=== PATIENT | female | born 1955 | race Caucasian/White ===

== ENCOUNTER → 2016-10-09 | Outpatient (CLI) | payer MEDICARE, OTHER ==
[~2016-10-09] MED LIST: BARIUM SUSPENSION 105% (LIQUID POLIBAR PLUS) 240 ML/DOSE PO ONE; BARIUM SUSPENSION 60% (LIQUID EZ PAQUE) 240 ML DOSE PO ONE
--- NOTE | 2016-10-09 09:36 | Diagnostic Imaging Report ---
EXAMINATION: Upper GI study, double contrast. Energy Assistant image of the abdomen was performed. After the oral administration of gas forming granules, the patient drank thick and thin barium with visualization under fluoroscopy, with spot images taken over the esophagus, stomach and duodenum and followed by overhead images in the chest and abdomen. INDICATION: Reflux. FLUOROSCOPY TIME: One minutes and 38 seconds. FINDINGS: Energy Assistant images of the abdomen demonstrate surgical clips in the upright abdomen and moderate colonic amount of fecal material. The esophagus demonstrates normal caliber with no strictures. The mucosal pattern demonstrates no filling defects, diverticulum or ulceration. There is normal relaxation of the distal sphincter. There is a small to moderate sized hiatal hernia. The hernia appears larger on supine and prone position. The stomach demonstrates normal distensibility with normal appearance of the mucosal folds. There are no ulcers or evidence of mass. The duodenal bulb and sweep appear normal. IMPRESSION: Hiatal hernia. Dictated by: Dictated on workstation # [id number]
== END ==
LOC: RAD 07:28
PROVIDERS: ATTEND Surgery Pediatric Surgery
DX: K44.9 Diaphragmatic hernia without obstruction or gangrene (principal)
CPT/HCPCS: 74241

== ENCOUNTER 2016-11-22 09:43 | Outpatient (CLI) | payer MEDICARE, OTHER ==
[~2016-11-22] VITALS: Ht 154.9 cm; Wt 102.5 kg
[2016-11-22 09:52] VITALS: BP 154/69
[2016-11-22] MEDS ORDERED: MOME13HF IH (10:06)
[2016-11-22] MEDS ORDERED: RT-ALBUINH IH (10:06)
[2016-11-22] MEDS ORDERED: METO100T2 PO (10:06)
[2016-11-22] MEDS ORDERED: CYCL10TA9 PO (10:06)
[2016-11-22] MEDS ORDERED: HYDR25TA4 PO (10:06)
[2016-11-22] MEDS ORDERED: LEVO150T6 PO (10:06)
[2016-11-22 10:34] LABS: BASOPHILS % (AUTO) 0 % (0-10); EOSINOPHILS # (AUTO) 0.1 10^3/uL (0.0-0.3); EOSINOPHILS % (AUTO) 2 % (0-10); LYMPHOCYTES # (AUTO) 1.8 X 10^3 (1.0-4.0); LYMPHOCYTES % (AUTO) 21 % (12-44); MEAN CORPUSCULAR HEMOGLOBIN 32 PG (25-34); MEAN CORPUSCULAR HGB CONC 33 G/DL (32-36); MEAN CORPUSCULAR VOLUME 96 FL (80-99); MEAN PLATELET VOLUME 8.9 FL (7.4-10.4); MONOCYTES # (AUTO) 0.5 X 10^3 (0.0-1.0); MONOCYTES % (AUTO) 6 % (0-12); NEUTROPHILS # (AUTO) 5.9 X 10^3 (1.8-7.8); NEUTROPHILS % (AUTO) 71 % (42-75); PLATELET COUNT 333 10^3/uL (130-400); RED BLOOD COUNT 4.17 10^6/uL (4.35-5.85); WHITE BLOOD COUNT 8.3 10^3/uL (4.3-11.0)
[2016-11-22 10:52] LABS: ANION GAP 9 MMOL/L (5-14); BLOOD UREA NITROGEN 6 MG/DL (7-18); BUN/CREATININE RATIO 8 (0-20); CALCIUM 9.2 MG/DL (8.5-10.1); CARBON DIOXIDE 23 MMOL/L (21-32); CHLORIDE 105 MMOL/L (98-107); CREATININE SERUM 0.73 MG/DL (0.60-1.30); GFR ESTIMATED > 60; GLUCOSE 115 MG/DL (70-105); HEMOLYSIS 4 (0-29); ICTERUS 0.4 (0-1.9); LIPEMIA 1 (0-49); POTASSIUM 4.1 MMOL/L (3.6-5.0); SODIUM 137 MMOL/L (135-145)
== END 2016-11-22 10:25 | disposition home or self-care (01) ==
LOC: PREOP 09:43
PROVIDERS: ATTEND Surgery Pediatric Surgery
DX: Z01.812 Encounter for preprocedural laboratory examination (principal); Z11.2 Encounter for screening for other bacterial diseases; E66.01 Morbid (severe) obesity due to excess calories
CPT/HCPCS: 36415; 80048; 85025; 87081

== ENCOUNTER 2016-11-29 06:00 | Inpatient (IN) | payer MEDICARE, OTHER ==
[~2016-11-29] VITALS: Ht 154.9 cm; Wt 102.5 kg
[~2016-11-29 06:00] MED LIST changes: -BARIUM SUSPENSION 105% (LIQUID POLIBAR PLUS) 240 ML/DOSE PO ONE; -BARIUM SUSPENSION 60% (LIQUID EZ PAQUE) 240 ML DOSE PO ONE; +CYCL10TA9 PO; +HYDR25TA4 PO; +LEVO150T6 PO; +METO100T2 PO; +MOME13HF IH; +RT-ALBUINH IH
[2016-11-29 07:00] VITALS: BP 138/82
[2016-11-29] MEDS ORDERED: BUP/EPI 0.5% 1:200,000 (SENSORCAINE) 30 ML VIAL ONE (07:04)
[2016-11-29] MEDS ORDERED: MIDAZOLAM 2 MG/2 ML (VERSED) VIAL ONE (07:10)
[2016-11-29] MEDS ORDERED: fentaNYL INJECTION 100 MCG/2 ML AMP ONE ×2 (07:10→09:03)
[2016-11-29] MEDS ORDERED: ceFAZolin 1 GM/NS 50 ML IVPB IV ONE ×2 (07:30)
[2016-11-29] MEDS ORDERED: CATHETER FLUSH 10 ML SYR IV PRN (07:30)
[2016-11-29] MEDS: LACTATED RINGERS 1,000 ML IV PRN ×2 (07:30→09:31)
--- NOTE | 2016-11-29 07:57 | Progress Note-Pre Operative ---
Pre-Operative Progress Note H&P Reviewed The H&P was reviewed, patient examined and no changes noted. Date Seen by Provider: Nov 29, 2016 Time Seen by Provider: 07:45 Date H&P Reviewed: Nov 29, 2016 Time H&P Reviewed: 07:50 Pre-Operative Diagnosis: Morbid obesity, HTN, COPD, asthma, DJD TEAGAN OSBORNE APRN Nov 29, 2016 7:57 am
[2016-11-29] MEDS ORDERED: proPOfol 200 MG/20 ML (DIPRIVAN) VIAL IV ONE ×2 (08:55→09:27)
[2016-11-29] MEDS ORDERED: LIDOCAINE PF 2% 5 ML (XYLOCAINE) VIAL ONE (08:55)
[2016-11-29] MEDS ORDERED: SEVOFLURANE (ULTANE) 15 ML INHAL SOLN ONE (08:55)
[2016-11-29] MEDS ORDERED: DEXAMETHASONE PF 10 MG/ML (DECADRON) VIAL ONE (08:55)
[2016-11-29] MEDS ORDERED: LACTATED RINGERS 1,000 ML IV ONE ×2 (08:55→09:47)
[2016-11-29] MEDS ORDERED: ONDANSETRON 4 MG/2 ML (SDV) Z0FRAN ONE (08:55)
[2016-11-29] MEDS ORDERED: ROCURONIUM 50 MG/5 ML (ZEMURON) VIAL IV ONE ×2 (09:26)
[2016-11-29] MEDS ORDERED: hydrALAZINE (APESOLINE) 20 MG/ML VIAL ONE (09:47)
--- NOTE | 2016-11-29 10:32 | Progress Note-Post Operative ---
Post-Operative Progess Note Surgeon (s)/[employer] Player (s) Surgeon RYLEE SCHAEFER MD [employer] Player: horacio herman SODA JERKER Pre-Operative Diagnosis Morbid obesity, HTN, COPD, asthma, DJD Post-Operative Diagnosis same, hiatal hernia Procedure & Operative Findings Date of Procedure 11/29/16 Procedure Performed/Findings laparoscopic gastric sleeve resection and hiatal hernia repair. Anesthesia Type GET Estimated Blood Loss Estimated blood loss (mL): minimal Specimens/Packing Specimens Removed stomach RYLEE SCHAEFER MD Nov 29, 2016 10:32 am
[2016-11-29] MEDS: RT-ALBUTEROL SULF 2.5 MG/3 ML PRE-MIX VIAL INH SCH ×4 (10:45→21:28)
[2016-11-29] MEDS ORDERED: diphenhydrAMINE 50 MG/ML INJ (BENADRYL) IVP PRN (10:45)
[2016-11-29] MEDS ORDERED: morphine INJ 10 MG/ML 1ML (SYR OR VIAL) IVP PRN (11:00)
[2016-11-29] MEDS ORDERED: GLYCOPYRROLATE 0.2 MG/ML (ROBINUL) 2 ML VIAL ONE (11:08)
[2016-11-29] MEDS ORDERED: NEOSTIGMINE (BLOXIVERZ ) 1 MG/1ML 10 ML VIAL ONE (11:08)
[2016-11-29 12:30] VITALS: BP 130/67
[2016-11-29] MEDS: 1/2 NS W/KCL 20 MEQ/L 1,000 ML IV SCH ×3 (13:24→20:53)
[2016-11-29] MEDS ORDERED: MELA1TAB15 PO (13:25)
[2016-11-29] MEDS: fentaNYL PCA 300 MCG/30 ML VIAL IV PRN (13:27)
[2016-11-29] MEDS: ceFAZolin 2 GM/50 ML NS 50 ML IV SCH ×2 (14:59→17:29)
[2016-11-29] MEDS: METOCLOPRAMIDE INJ 10 MG/2 ML (REGLAN) IVP SCH ×2 (15:00→20:53)
[2016-11-29] MEDS: ONDANSETRON 4 MG/2 ML (SDV) Z0FRAN IVP SCH ×2 (15:00→20:54)
[2016-11-29] MEDS: metroNIDAZOLE 500MG/100ML IVPB 100 ML IV SCH (15:44)
[2016-11-29 16:20] VITALS: BP 155/80
[2016-11-29 17:20] VITALS: BP 139/83
[2016-11-29] MEDS: oxyCODONE 20 MG/1 ML ORAL CONC (RoxiCODONE) CHARGE PER 1 ML PO PRN (19:25)
--- NOTE | 2016-11-29 20:02 | OPERATIVE REPORT ---
DATE OF SERVICE: 11/29/2016 PRIMARY CARE PHYSICIAN: Dr. Vasquez. PREOPERATIVE DIAGNOSES: 1. Morbid obesity. 2. Hypertension. 3. Hiatal hernia. POSTOPERATIVE DIAGNOSES: 1. Morbid obesity. 2. Hypertension. 3. Hiatal hernia. PROCEDURE: Laparoscopic gastric sleeve resection and hiatal hernia repair. SURGEON: Dr. Schaefer. CV TECH: Cain Sargent APRN. ANESTHESIA: General endotracheal. ESTIMATED BLOOD LOSS: Minimal. FINDINGS: Significant sized hiatal hernia approximately 3 cm in size. A mild hepatomegaly with liver steatosis. DISPOSITION: The patient tolerated the procedure well. INDICATIONS: This patient is a 61-year-old female in our surgical weight loss program for the laparoscopic gastric sleeve resection and meets the medical criteria for bariatric surgery. She began to gain the majority of her adult weight over the past 3 years. She has tried a number of diet and exercise attempts. She has tried diets including cabbage, soup, Atkins diet, fasting as well as the [place] diet and reports that at some point she has had some success; however, would regain the weight back. She has also tried a number of exercise regimens including treadmill, walking; however, would regain the weight back. She has tried medications including Garcinia Cambogia which did not work. Her medical comorbidities related to her obesity include hypertension, asthma, COPD, degenerative joint disease as well as gastroesophageal reflux disease and hiatal hernia. DESCRIPTION OF PROCEDURE: The patient was brought to the operating room, laid supine on the table. After adequate IV pain and sedating medications and general endotracheal intubation, the abdomen was prepped and draped in standard surgical fashion. A 0.5% Marcaine with epinephrine was then used to anesthetize the overlying skin in the left upper abdominal quadrant. A small transverse skin incision made using a 15 blade. A 0-silk suture was applied to the medial aspect of the incision for retraction and a Veress needle inserted with a low opening pressure of 0 mmHg. The Veress needle removed and a 5 mm Xcel trocar placed followed by a 5 mm 45-degree angle laparoscope visualizing the peritoneal cavity. A four-quadrant abdominal exploration was performed. There was a mild hepatomegaly with mild liver steatosis. There was a surgically absent gallbladder. Upon further exploration, the hiatal hernia detected on upper GI contrast study was significant in size and approximately 3 cm in size. Under direct visualization, we then proceeded to place a midabdominal left to midline 10 mm port after the skin and peritoneum were anesthetized using 0.5% Marcaine and a transverse skin incision made using a 15 blade. In a similar manner, a midabdominal right of midline 15 mm port was placed followed by a 5 mm right upper abdominal quadrant port. An area in the epigastric region was then anesthetized and the skin incision made using an #11 blade. A tract was then created through the abdominal layers using a trocar to a 5 mm port. Through this opening, a medium-sized Marylu liver retractor was placed and the left lobe of the liver retracted anteriorly and superiorly. The patient was then placed in steep reverse Trendelenburg position. We measured 6 cm from the pylorus along the greater curvature and marked this with a marking pen. We then proceeded with opening at the gastrocolic ligament next to the stomach, entering to the lesser sac using Sonicision. We then proceeded with inferior dissection until we were approximately 2 cm below our marking using Sonicision with visualization of good hemostasis. We then proceeded cephalad along the greater curvature, taking down all the short gastric vessels. The entire angle of His connective tissue fibers were then dissected out as well with visualization of good hemostasis. We then proceeded with repair of the hiatal hernia. The phrenoesophageal ligament was opened using Sonicision. The defect was then approximated anteriorly using interrupted 2-0 Surgidac interrupted sutures closing the defect and pulling down the esophagus and creating an opening the diameter of the esophagus with visualization of good hemostasis. The GastriSail was then placed under direct visualization and used as a bougie. We then proceeded with a gastric sleeve resection along approximately 2 cm below our marking first using a JOSE polyglycolic acid black load. We then proceeded with a 60 mm black load followed by two 60 mm purple loads until we were approximately 2 cm from the gastroesophageal junction. Good hemostasis was observed. The staple line was then clipped at its corners using a 5 mm clip. The pylorus was then occluded and approximately 60 mL of air were infused and saline infused with no leaks identified. The saline was then suctioned out. Along the staple line, Tisseel fibrin glue was placed and the omentum placed over the staple line. The stomach remnant was removed through the 15 mm port site. The fascia and peritoneum to the 10 and 15 mm port sites were then closed under direct visualization using a Xavi-Priya device and 0 Vicryl suture. The abdomen was desufflated and the liver retractor removed as well as the remaining ports removed. All skin incisions were closed using 4-0 Monocryl running subcuticular sutures. Wounds were then cleaned and covered with Dermabond. The patient tolerated the procedure well. We will start IV normal pain medication including a WOODWIND INSTRUMENT REPAIRER pump. We will also proceed with DVT prophylaxis with early ambulation cath ICDs as well as Lovenox injections. Tomorrow morning, we will start the patient on clear liquid diet and once she is tolerating clears, has good pain control with oral pain medications and ambulating well, we will discharge her home. Specific instructions on diet including the next two weeks of clear liquid diet were explained to the patient as well. Job ID: [id number] DocumentID: [id number] Dictated Date: 11/29/2016 10:54:51 Travel Registered Nurse Nicu Date: 11/29/2016 13:32:22 Dictated By: RYLEE SCHAEFER MD
[2016-11-29 20:20] VITALS: BP 158/69
[2016-11-29] MEDS: ENOXAPARIN 30 MG/0.3 ML (LOVENOX) SYR SC SCH (20:54)
[2016-11-30] MEDS: metroNIDAZOLE 500MG/100ML IVPB 100 ML IV SCH ×2 (00:09→06:59)
[2016-11-30 00:33] VITALS: BP 146/76
[2016-11-30] MEDS: ceFAZolin 2 GM/50 ML NS 50 ML IV SCH ×2 (01:18→08:51)
[2016-11-30] MEDS: ONDANSETRON 4 MG/2 ML (SDV) Z0FRAN IVP SCH ×2 (02:08→06:58)
[2016-11-30] MEDS: METOCLOPRAMIDE INJ 10 MG/2 ML (REGLAN) IVP SCH ×2 (02:08→06:59)
[2016-11-30] MEDS: RT-ALBUTEROL SULF 2.5 MG/3 ML PRE-MIX VIAL INH SCH ×4 (02:09→14:56)
[2016-11-30] MEDS: oxyCODONE 20 MG/1 ML ORAL CONC (RoxiCODONE) CHARGE PER 1 ML PO PRN ×3 (03:53→13:56)
[2016-11-30] MEDS: 1/2 NS W/KCL 20 MEQ/L 1,000 ML IV SCH ×2 (03:55→15:47)
[2016-11-30 04:02] VITALS: BP 169/63
[2016-11-30] MEDS ORDERED: FUROSEMIDE 40 MG/4 ML INJ (LASIX) IVP ONE (04:15)
[2016-11-30 05:45] LABS: MEAN PLATELET VOLUME 9.1 FL (7.4-10.4); RED CELL DISTRIBUTION WIDTH 14.2 % (10.0-14.5); WHITE BLOOD COUNT 14.3 10^3/uL (4.3-11.0)
[2016-11-30 05:58] LABS: ANION GAP 12 MMOL/L (5-14); BLOOD UREA NITROGEN 9 MG/DL (7-18); BUN/CREATININE RATIO 11 (0-20); CALCIUM 8.8 MG/DL (8.5-10.1); CARBON DIOXIDE 21 MMOL/L (21-32); CHLORIDE 102 MMOL/L (98-107); CREATININE SERUM 0.82 MG/DL (0.60-1.30); GFR ESTIMATED > 60; GLUCOSE 139 MG/DL (70-105); HEMOLYSIS 6 (-100-29); ICTERUS 0.4 (-100-1.9); LIPEMIA 0 (-100-49); POTASSIUM 3.9 MMOL/L (3.6-5.0); SODIUM 135 MMOL/L (135-145)
[2016-11-30] MEDS: fentaNYL PCA 300 MCG/30 ML VIAL IV PRN (06:20)
--- NOTE | 2016-11-30 07:49 | Anesthesia-General Post-Op ---
General Patient Condition Mental Status/LOC: Same as Preop Cardiovascular: Satisfactory Nausea/Vomiting: Absent Respiratory: Satisfactory Pain: Controlled Complications: Absent Post Op Complications Complications None Follow Up Care/Instructions Patient Instructions None needed. Anesthesia/Patient Condition Patient Condition Patient is doing well, no complaints, stable vital signs, no apparent adverse anesthesia problems. No complications reported per nursing. D/C home per [facility] Criteria: No RODO CRISOSTOMO CRNA Nov 30, 2016 07:49
[2016-11-30 08:00] VITALS: BP 130/77
[2016-11-30] MEDS: ENOXAPARIN 30 MG/0.3 ML (LOVENOX) SYR SC SCH (08:51)
[2016-11-30] MEDS ORDERED: PANTOPRAZOLE 40 MG/10 ML (PROTONIX) VIAL IV SCH (09:00)
[2016-11-30] MEDS ORDERED: ONDANSETRON 4 MG/2 ML (SDV) Z0FRAN IVP PRN (10:45)
[2016-11-30] MEDS ORDERED: METOCLOPRAMIDE INJ 10 MG/2 ML (REGLAN) IVP PRN (10:45)
[2016-11-30 12:00] VITALS: BP 155/81
--- NOTE | 2016-11-30 14:21 | Progress Note (SOAP) ---
Subjective Date Seen by Provider: Nov 30, 2016 Time Seen by Provider: 14:00 Subjective/Events-last exam doing well. does have underlying respiratory issues including COPD. tolerating phase 1 clear liquids. pain controlled. Objective Exam Vital Signs Date Time Temp Pulse Resp B/P (MAP) Pulse Ox O2 Delivery O2 Flow Rate FiO2 11/30/16 12:00 99.4 85 20 155/81 95 Nasal Cannula 5.00 11/30/16 10:23 92 Nasal Cannula 5.00 11/30/16 09:00 Nasal Cannula 5.00 11/30/16 08:00 98.6 87 16 130/77 94 Nasal Cannula 5.00 11/30/16 06:51 20 11/30/16 06:48 92 Nasal Cannula 5.00 11/30/16 04:23 85 Nasal Cannula 5.00 11/30/16 04:02 99.8 104 20 169/63 90 Nasal Cannula 5.00 11/30/16 02:09 92 Nasal Cannula 5.00 11/30/16 00:33 99.1 92 20 146/76 94 Nasal Cannula 5.00 11/29/16 21:28 93 Nasal Cannula 5.00 11/29/16 21:00 Nasal Cannula 5.00 11/29/16 20:20 99.1 84 21 158/69 94 Nasal Cannula 5.00 11/29/16 19:14 95 Nasal Cannula 5.00 11/29/16 17:20 98.0 68 20 139/83 95 Nasal Cannula 5.00 11/29/16 16:20 98.1 66 20 155/80 94 Nasal Cannula 5.00 I & O 11/30/16 07:00 Intake Total 1200 ml Output Total 1835 ml Balance -635 ml Capillary Refill : General Appearance: No Apparent Distress HEENT: PERRL/EOMI Neck: Full Range of Motion Respiratory: Rhonci, Wheezing Cardiovascular: Regular Rate, Rhythm Gastrointestinal: normal bowel sounds, soft, other (wounds clean/dry) Extremity: Normal Capillary Refill Neurologic/Psychiatric: Alert, Oriented x3 Skin: Normal Color Lymphatic: No Adenopathy Results Lab Laboratory Tests 11/30/16 05:35: White Blood Count 14.3H, Red Blood Count 4.00L, Hemoglobin 12.7, Hematocrit 39, Mean Corpuscular Volume 98, Mean Corpuscular Hemoglobin 32, Mean Corpuscular Hemoglobin Concent 33, Red Cell Distribution Width 14.2, Platelet Count 282, Mean Platelet Volume 9.1, Sodium Level 135, Potassium Level 3.9, Chloride Level 102, Carbon Dioxide Level 21, Anion Gap 12, Blood Urea Nitrogen 9, Creatinine 0.82, Estimat Glomerular Filtration Rate > 60, BUN/Creatinine Ratio 11, Glucose Level 139H, Calcium Level 8.8 Assessment/Plan Assessment/Plan Assess & Plan/Chief Complaint s/p laparoscopic gastric sleeve resection and hiatal hernia repair. baseline repiratory status. on CPAP at night, may need home O2. continue ambulation and phase 1 clear liquid diet for 2 weeks. home soon. Clinical Quality Measures DVT/VTE Risk/Contraindication: Risk Factor Score Per Nursin RFS Level Per Nursing on Admit: 4+=Very High RYLEE SCHAEFER MD Nov 30, 2016 2:21 pm
[2016-11-30] MEDS ORDERED: NCT21TD TD (14:39)
--- NOTE | 2016-11-30 14:42 | Discharge Inst-Surgical ---
D/C Lap Instructions-OLIVE New, Converted, or Re-Newed RX: RX on Chart Follow Up Appt in 2 weeks Activity as tolerated No driving for 24 hours No driving while on pain medications Incentive Spirometry use every 2 hours while awake Phase 1 clear liquid diet for next 2 weeks. Symptoms to Report: Fever over 101 degree F, Nausea/Vomiting Infection Signs and Symptoms to report: Increased redness, Foul odor of wound, Increased drainage Bathing instructions: May shower Operative Area Clean/Dry; Keep incision clean/dry If any problems/questions: Contact your physician or go to Emergency Room RYLEE SCHAEFER MD Nov 30, 2016 2:41 pm
[2016-11-30] MEDS ORDERED: NICOTINE 21 MG (NICODERM) PATCH TD NR (14:45)
[2016-12-01] MEDS ORDERED: NICOTINE PATCH REMOVAL TP SCH (08:59)
--- NOTE | 2016-12-03 11:18 | Physician Query Clarification ---
PQ-Further Specificity Admission/Discharge Admission Date: Nov 29, 2016 at 06:00 Discharge Date: Nov 30, 2016 at 17:05 The medical record reflects the following clinical scenario: History/Risk Factors: Hiatal hernia, MOB Clinical Findings: 3 cm hiatal hernia defect Treatment: hiatal hernia repair Question: Can you further specify if the hiatal hernia is on the right, left or both sides of the diaphragm? Please document below. 1. Right side of diaphragm 2. Left side of diaphragm 3. On both the right side and left side of the diaphragm 4. Other, with explanation of the clinical findings. 5. Clinically undetermined, no explanation for the clinical findings. PHYSICIAN RESPONSE Can you specify per above: Other, explanation/clinical finding Explanation/Clinical Findings type one sliding hiatal hernia In responding to this query, please exercise your independent professional judgment. The purpose of this communication is to more accurately reflect the complexity of your patients condition. The fact that a question is asked does not imply that any particular answer is desired or expected. Thank you for your timely response to this clarification. Requestors name: [ ] Phone # [ ] THIS PHYSICIAN QUERY FORM IS A PERMANENT PART OF THE MEDICAL RECORD LILY ELLISON Dec 03, 2016 11:18 RYLEE SCHAEFER MD Dec 04, 2016 10:51
== END 2016-11-30 17:05 | disposition home or self-care (01) | DRG 621 ==
LOC: 4TH 06:00 → SURG 06:01 → 4TH 11:35
PROVIDERS: ADMIT Surgery; ATTEND Surgery
PROC: 0BQR4ZZ (ICD-10-PCS; 2016-11-29)
PROC: 0BQS4ZZ (ICD-10-PCS; 2016-11-29)
PROC: 0DB64Z3 Excision of Stomach, Percutaneous Endoscopic Approach, Vertical (ICD-10-PCS; principal; 2016-11-29 08:16)
DX: E66.01 Morbid (severe) obesity due to excess calories (principal); K44.9 Diaphragmatic hernia without obstruction or gangrene; K21.9 Gastro-esophageal reflux disease without esophagitis; K76.0 Fatty (change of) liver, not elsewhere classified; I10 Essential (primary) hypertension; J44.9 Chronic obstructive pulmonary disease, unspecified; J45.909 Unspecified asthma, uncomplicated; M19.91 Primary osteoarthritis, unspecified site
CPT/HCPCS: 36415; 80048; 85027; 94640; 94664; 94760; 94761

== ENCOUNTER → 2019-02-23 | Outpatient (CLI) | payer MEDICARE, OTHER ==
[~2019-02-23] MED LIST changes: +MELA1TAB15 PO; +METO100T12 PO; -METO100T2 PO; +NICO-588 TD
--- NOTE | 2019-02-23 13:13 | Diagnostic Imaging Report ---
INDICATION: Right-sided low back pain extending into the right hip. Time of exam 12:24 p.m. Three views of the lumbar spine were obtained. FINDINGS: Curvature and alignment of the lumbar spine is normal. Vertebral body heights and disc spaces are well-maintained. No fracture or subluxation is seen. There appears to be some lower lumbar facet arthropathy. Abdominal aorta is heavily calcified. IMPRESSION: Lower lumbar facet arthropathy. No acute bony abnormality is detected. Dictated by: Dictated on workstation # [id number]
--- NOTE | 2019-02-23 13:26 | Diagnostic Imaging Report ---
INDICATION: Back pain. TIME OF EXAM: 12:22 p.m. FINDINGS: Curvature and alignment of the thoracic spine is normal. Vertebral body heights are maintained. No acute compression fracture is seen. Generalized degenerative disc disease is noted. Pedicles and paraspinous line are intact. IMPRESSION: Thoracic spondylosis. No acute bony abnormality is detected. Dictated by: Dictated on workstation # [id number]
--- NOTE | 2019-02-23 14:34 | Diagnostic Imaging Report ---
INDICATION: Right hip pain and SI joint pain. AP and lateral views of sacrum and coccyx are obtained. FINDINGS: There is no overt fracture or acute bony abnormality seen. There is some degenerative change of the pubic symphysis. There are degenerative findings of the SI joints on both sides inferiorly. These findings appear fairly symmetric. IMPRESSION: Symmetric degenerative findings to the AC joints on both sides with some degenerative change of the pubic symphysis as well. There is no acute appearing abnormality. Dictated by: Dictated on workstation # [id number]
== END ==
LOC: RAD 12:07
PROVIDERS: ATTEND Nurse Practitioner Family
DX: M46.96 Unspecified inflammatory spondylopathy, lumbar region (principal); M19.012 Primary osteoarthritis, left shoulder; M19.011 Primary osteoarthritis, right shoulder; M16.11 Unilateral primary osteoarthritis, right hip; M47.814 Spondylosis without myelopathy or radiculopathy, thoracic region
CPT/HCPCS: 72072; 72100; 72220

== ENCOUNTER → 2019-03-17 | Outpatient (CLI) | payer MEDICARE, OTHER ==
--- NOTE | 2019-03-17 16:21 | Diagnostic Imaging Report ---
PROCEDURE: MRI lumbar spine. TECHNIQUE: Multiplanar, multisequence MRI of the lumbar spine was performed without contrast. INDICATION: Right-sided low back pain extending into the right hip. COMPARISON: No prior MRI studies are available for comparison. FINDINGS: Curvature and alignment of the lumbar spine is normal. The vertebral body heights are maintained. The marrow signal intensity is unremarkable. No geographic marrow lesion or acute compression fracture is identified. There is some disc desiccation and mild disc space narrowing involving the L5-S1 level compatible with degenerative disc disease. Remaining lumbar disks show fairly normal hydration and height. The conus is unremarkable at the L1 level. T12-L1: The central canal and neural foramina are widely patent. L1-L2: The central canal and neural foramina are widely patent. L2-L3: The central canal and neural foramina are widely patent. L3-L4: There appears to be some broad-based disc bulging. Central canal remains patent but there is jbph-qi-swmcljpx bilateral neural foraminal narrowing present. No focal disc protrusion is seen. L4-L5: There is significant ligamentous thickening present. In addition, there is broad-based disc/osteophyte complex. This results in moderate trefoil stenosis to the central canal. There is also significant bilateral lateral recess narrowing as well as moderate bilateral neural foraminal stenosis. L5-S1: There are hypertrophic facet changes and ligamentous thickening. This in addition to broad-based disc/osteophyte complex does result in qycl-bx-nwxtflet central canal narrowing. There is also narrowing of bilateral lateral recesses as well as moderate bilateral neural foraminal stenosis. Paraspinous tissues are unremarkable. IMPRESSION: Multilevel lumbar spondylosis with multilevel central canal, lateral recess and neural foraminal stenosis described level by level above. No acute compression fracture is detected. Dictated by: Dictated on workstation # [id number]
== END ==
LOC: RAD 14:06
PROVIDERS: ATTEND Nurse Practitioner Family
DX: M47.26 Other spondylosis with radiculopathy, lumbar region (principal); M48.07 Spinal stenosis, lumbosacral region
CPT/HCPCS: 72148

== ENCOUNTER → 2019-10-20 | Outpatient (CLI) | payer MEDICARE, OTHER ==
--- NOTE | 2019-10-20 17:13 | Diagnostic Imaging Report ---
CLINICAL INDICATION: Patient with spinal stenosis and lower back pain. EXAM: X-ray of the lumbar spine, four views with lateral flexion-extension views. COMPARISON: X-ray of the lumbar spine dated 02/23/2019. FINDINGS: Bowel gas obscures portions of the lumbar spine. There is no acute lumbar spine fracture or dislocation. There is mild right curvature of the lumbar spine which has developed in the interim or due to patient positioning. There is stable ylgc-oa-bsygzfnm loss of disc space height at the L5-S1 level. There is no significant change to the L5 spurs. There are degenerative spurs involving the sacroiliac joint region. Flexion-extension views of the lumbar spine show no significant motion. There are surgical clips overlying the left upper abdomen. IMPRESSION: 1: There is no acute fracture or dislocation. There is no significant motion of the lumbar spine on flexion-extension views. 2: Stable uila-vm-jratlbzu disc space loss at the L5-S1 level. Dictated by: Dictated on workstation # [id number]
== END ==
LOC: RAD 16:07
PROVIDERS: ATTEND Neurological Surgery
DX: M48.061 Spinal stenosis, lumbar region without neurogenic claudication (principal)
CPT/HCPCS: 72110

== ENCOUNTER → 2019-12-01 | Outpatient (CLI) | payer MEDICARE, OTHER ==
[~2019-12-01] MED LIST changes: +CATHETER FLUSH 10 ML SYR IV PRN; +HOLD METFORMIN - RECEIVED CONTRAST 20 ML VIAL IV SCH; +IOHEXOL 350 MG/ML 100 ML (OMNIPAQUE 350) VIAL IV ONE; +NS 100 ML (IVPB) BAG IV ONE
[2019-12-01 09:37] LABS: ALBUMIN 4.3 GM/DL (3.2-4.5); CHLORIDE 99 MMOL/L (98-107); POTASSIUM 3.6 MMOL/L (3.6-5.0); SODIUM 134 MMOL/L (135-145)
[2019-12-01 09:38] LABS: CALCIUM 9.4 MG/DL (8.5-10.1)
[2019-12-01 09:39] LABS: GLUCOSE 108 MG/DL (70-105)
[2019-12-01 09:41] LABS: BILIRUBIN,TOTAL 0.3 MG/DL (0.1-1.0); CARBON DIOXIDE 24 MMOL/L (21-32)
[2019-12-01 09:43] LABS: ALKALINE PHOSPHATASE 103 U/L (40-136); CREATININE SERUM 0.73 MG/DL (0.60-1.30); GFR ESTIMATED > 60
[2019-12-01 09:44] LABS: BUN/CREATININE RATIO 21
[2019-12-01 09:46] LABS: ALANINE AMINOTRANSFERASE 14 U/L (0-55)
--- NOTE | 2019-12-01 10:46 | Diagnostic Imaging Report ---
PROCEDURE: CT abdomen and pelvis with contrast. TECHNIQUE: Multiple contiguous axial images were obtained through the abdomen and pelvis after administration of intravenous contrast. Auto Exposure Controls were utilized during the CT exam to meet ALARA standards for radiation dose reduction. INDICATION: Mid and upper abdominal pain for 2 months. No prior studies are available for comparison. Imaging through lung bases demonstrate some scarring or atelectasis in the lingula. Liver does show some mild generalized low density suggestive of hepatic steatosis. No discrete liver mass is detected. Gallbladder is surgically absent. No biliary ductal dilatation is identified. The pancreas and spleen are unremarkable. No adrenal mass is detected. There are postsurgical changes of gastric bypass. Kidneys are unremarkable. The aorta is ectatic but nonaneurysmal. There is a small midline fat containing ventral hernia in the upper abdomen. No herniated bowel loops are detected. Bowel loops are of normal caliber. No obstruction is seen. There is moderate stool in the colon. Appendix is visualized and unremarkable. There is diverticulosis of the sigmoid but no evidence of acute diverticulitis. No definite abdominal or pelvic lymphadenopathy is detected. Bony structures demonstrate some sclerosis of the SI joints, perhaps owing to sacroiliitis. No other abnormalities detected. IMPRESSION: 1. Hepatic steatosis. 2. Status post gastric bypass. 3. Diverticulosis. 4. Small fat-containing midline ventral hernia. 5. No acute features in the abdomen or pelvis is detected. 6. Bilateral sacroiliac joint sclerosis, perhaps owing to sacroiliitis. Dictated by: Dictated on workstation # [id number]
== END ==
LOC: RAD 09:00
PROVIDERS: ATTEND Nurse Practitioner Family
DX: K76.0 Fatty (change of) liver, not elsewhere classified (principal); K57.30 Diverticulosis of large intestine without perforation or abscess without bleeding; K43.9 Ventral hernia without obstruction or gangrene; M53.3 Sacrococcygeal disorders, not elsewhere classified; Z98.84 Bariatric surgery status
CPT/HCPCS: 36415; 74177; 80053